=== PATIENT | male | born 1950 | race American Indian/Alaskan Native ===

== ENCOUNTER 2022-02-27 10:31 | Outpatient (CLI) | payer MEDICARE, OTHER ==
--- NOTE | 2022-02-27 12:02 | XRay Report ---
LEFT HUMERUS 2 VIEW(S) INDICATION / CLINICAL INFORMATION: S4. COMPARISON: None available. FINDINGS: BONES / JOINT(S): There is an intramedullary nail in the left humerus. The fracture appears to be hea ling. There is some minimal lucency noted at the fracture site. . SOFT TISSUES: No significant abnormality. ADDITIONAL FINDINGS: None. IMPRESSION: 1. Healing left humeral fracture transfixed by an intramedullary nail. There is minimal lucency noted at the fracture site. Signer Name: Kunal Cruz MD Signed: 02/27/2022 11:57 AM Workstation Name: [id number]
== END 2022-02-27 10:32 | disposition home or self-care (01) ==
LOC: XRAY 10:31
PROVIDERS: ATTEND Orthopaedic Surgery
DX: S42.202D Unspecified fracture of upper end of left humerus, subsequent encounter for fracture with routine healing (principal); X58.XXXD Exposure to other specified factors, subsequent encounter